=== PATIENT | male | born 1955 | race Caucasian/White ===

== ENCOUNTER 2021-12-24 07:07 | Emergency (ER) | payer BC ==
[2021-12-24 07:22] VITALS: RESP 18; BMI 30.3
[2021-12-24] MEDS ORDERED: SODIUM CHLORIDE 0.9% 500 ML INFUS.BAG IV ONE (08:08)
[2021-12-24 08:33] LABS: BASO % 0.4 % (0-2.0); EOS % 1.3 % (0-4.5); HEMATOCRIT 42.2 % (35.4-49); HEMOGLOBIN 14.1 GM/dL (11.7-16.9); LYMPH % 16.4 % (8-40); MCH 29.8 pg (25.7-33.7); MCHC 33.5 g/dl (32.0-35.9); MEAN CELL VOLUME 88.9 fl (80-96); MEAN PLT VOLUME 8.7 fl (7.5-11.1); NEUT % 74.9 % (42.8-82.8); PLATELET COUNT 228 10^3/uL (134-434); RBC 4.75 M/mm3 (4.00-5.60); RDW 13.9 % (11.9-15.9); WHITE BLOOD COUNT 10.4 K/mm3 (4.0-10.0)
[2021-12-24 08:58] LABS: CALCIUM 9.3 mg/dL (8.5-10.1)
[2021-12-24 08:59] LABS: ALBUMIN 3.8 g/dl (3.4-5.0)
[2021-12-24 09:02] LABS: CREATININE 0.9 mg/dL (0.55-1.3)
[2021-12-24 09:04] LABS: BILIRUBIN,TOTAL 0.6 mg/dL (0.2-1); TOT PROT 7.1 g/dl (6.4-8.2)
[2021-12-24 09:59] VITALS: BP 124/80; PULSE 70; TEMP 98
== END 2021-12-24 11:26 | disposition home or self-care (01) ==
LOC: JER 07:07
DX: R42 Dizziness and giddiness (principal)
CPT/HCPCS: 36415; 70450-TC; 71046-TC-FY; 80053; 84484; 85025; 93005; 93010; 99285-25